=== PATIENT | female | born 1985 | race Caucasian/White ===

== ENCOUNTER 2018-09-30 16:50 | Emergency (ER) | payer MEDICAID ==
[~2018-09-30] VITALS: Ht 175.3 cm; Wt 84.6 kg
[~2018-09-30 16:50] MED LIST: FLUT1DIS3 INH; LORA-446 PO; PRED5TAB19 PO; TRAM-47 PO; VANC250C2 PO
[2018-09-30 17:22] LABS: BASOPHILS # (AUTO) 0.02 x10^3/uL (0-0.1); BASOPHILS % (AUTO) 0 % (0-1); EOSINOPHILS # (AUTO) 0.06 x10^3/uL (0-0.4); EOSINOPHILS % (AUTO) 1 % (1-7); LYMPHOCYTES # (AUTO) 2.53 x10^3/uL (1-3.4); LYMPHOCYTES % (AUTO) 46 % (22-44); MD NO; MEAN CORPUSCULAR HGB CONC 34.1 g/dL (32.4-35.8); MONOCYTES # (AUTO) 0.32 x10^3/uL (0.2-0.8); MONOCYTES % (AUTO) 6 % (2-9); NEUTROPHILS # (AUTO) 2.62 x10^3/uL (1.8-6.8); NEUTROPHILS % (AUTO) 47 % (42-75); PLATELET COUNT 300 x10^3/uL (130-400); RED BLOOD COUNT 4.18 x10^6/uL (3.82-5.3); RED CELL DISTRIBUTION WIDTH 13.3 % (9.6-15.2)
--- NOTE | 2018-09-30 17:22 | NUR ---
FROM LOBBY TO ROOM AT THIS TIME
[2018-09-30] MEDS ORDERED: FLUO20CA19 PO (17:29)
[2018-09-30] MEDS ORDERED: HYDR50CA PO (17:29)
[2018-09-30] MEDS ORDERED: TRAZ50TA66 PO (17:29)
[2018-09-30 17:35] LABS: ALANINE AMINOTRANSFERASE 38 U/L (12-78); ALBUMIN 3.4 g/dL (3.4-5.0); ANION GAP 8 mmol/L (5-15); CALCIUM 8.6 mg/dL (8.5-10.1); CHLORIDE 103 mmol/L (98-107); CREATININE 0.84 mg/dL (0.55-1.02)
[2018-09-30 17:37] LABS: ALKALINE PHOSPHATASE 111 U/L (45-117); BILIRUBIN,TOTAL 0.3 mg/dL (0.2-1.0); TOTAL PROTEIN 7.5 g/dL (6.4-8.2)
[2018-09-30] MEDS ORDERED: MORPHINE SULFATE 4 MG/ML, 1ML ONE ×2 (17:42→19:24)
[2018-09-30] MEDS ORDERED: ONDANSETRON 2MG/ML, 2ML ONE (17:42)
[2018-09-30] MEDS ORDERED: FAMOTIDINE 20 MG/2 ML ONE (17:42)
--- NOTE | 2018-09-30 17:59 | NUR ---
pt laying on gurney awake & calm, responds approp to staff, comfort measures provided, call light within reach. US at BS.
[2018-09-30] MEDS ORDERED: FAMOTIDINE 20 MG/2 ML IVP ONE (18:00)
[2018-09-30] MEDS ORDERED: SODIUM CHLORIDE FLUSH 10ML SYR IVF ONE (18:00)
[2018-09-30] MEDS ORDERED: ONDANSETRON 2MG/ML, 2ML IVPush ONE (18:00)
[2018-09-30] MEDS: MORPHINE SULFATE 4 MG/ML, 1ML IVPush PRN ×2 (18:01→19:35)
[2018-09-30 18:35] LABS: MICROSCOPIC INDICATED
[2018-09-30 18:38] LABS: CULTURE INDICATED? YES
--- NOTE | 2018-09-30 18:54 | NUR ---
REPORT GIVEN TO JACEK
--- NOTE | 2018-09-30 19:00 | NUR ---
RECEIEVED REPORT FROM DI MACKAY. PT RESTING IN BED. ALL RESULTS BACK, PT UP FOR RECHECK.
[2018-09-30 20:14] VITALS: BP 125/86
== END 2018-09-30 20:24 | disposition home or self-care (01) ==
LOC: ED 20:18
DX: R16.2 Hepatomegaly with splenomegaly, not elsewhere classified (principal); R10.12 Left upper quadrant pain
CPT/HCPCS: 36415; 76700; 80053; 81001; 81025; 83690; 85025; 87086; 96374; 96375; 99284; J2405; J3490